=== PATIENT | male | born 1940 | race Caucasian/White ===

== ENCOUNTER 2021-10-12 03:00 | Emergency (ER) | payer MEDICARE, OTHER ==
[2021-10-12] MEDS ORDERED: Lidocaine 1% 5 ML VIAL INJECT ONE (03:47)
== END 2021-10-12 04:18 | disposition home or self-care (01) ==
LOC: JP.ED 03:00
DX: A69.20 Lyme disease, unspecified (principal); S20.451A Superficial foreign body of right back wall of thorax, initial encounter; E78.00 Pure hypercholesterolemia, unspecified; Z79.899 Other long term (current) drug therapy
CPT/HCPCS: 99283